=== PATIENT | female | born 1950 | race Caucasian/White ===

== ENCOUNTER → 2016-07-09 | Outpatient (CLI) | payer OTHER ==
--- NOTE | 2016-07-09 08:21 | MA ---
Screening Digital Mammogram Clinical Indications: Routine screening. Technique: Standard cephalocaudal and mediolateral oblique projections were obtained. This examinat ion was processed by the [employer] computer aided detection system. Comparison: June 2015, May 2014, May 2013. Breast density: D; The breast tissue is extremely dense. This may lower the sensitivity of mammograph y. Findings: CAD was reviewed. No suspicious findings are identified. Impression: Negative mammogram. BI-RADS 1. Recommendation: Routine screening is recommended in one year, as long as physical examination is jai ign in this patient with extremely dense breast parenchyma. [facility] will send a result letter to the patient. Negative mammography should not preclude additional workup of a clinically suspicious finding. The patient's information is entered into a reminder system with a target due date for her next mammo gram.
== END ==
LOC: BMCIMAGING 07:33
DX: Z12.31 Encounter for screening mammogram for malignant neoplasm of breast (principal)
CPT/HCPCS: G0202

== ENCOUNTER → 2017-06-02 | Outpatient (CLI) | payer OTHER | LOC: BMCIMAGING 08:45 | PROVIDERS: ATTEND Internal Medicine | DX: R79.89 Other specified abnormal findings of blood chemistry (principal) ==

== ENCOUNTER → 2017-07-17 | Outpatient (CLI) | payer OTHER | LOC: BMCIMAGING 13:05 | PROVIDERS: ATTEND Internal Medicine | DX: Z12.31 Encounter for screening mammogram for malignant neoplasm of breast (principal); M85.80 Other specified disorders of bone density and structure, unspecified site ==

== ENCOUNTER → 2018-07-23 | Outpatient (CLI) | payer OTHER | LOC: BMCIMAGING 12:57 | PROVIDERS: ATTEND Internal Medicine | DX: Z12.31 Encounter for screening mammogram for malignant neoplasm of breast (principal) ==

== ENCOUNTER → 2018-07-27 | Outpatient (CLI) | payer OTHER | LOC: FIMAGING 08:51 | PROVIDERS: ATTEND Internal Medicine | DX: R92.8 Other abnormal and inconclusive findings on diagnostic imaging of breast (principal); N63.12 Unspecified lump in the right breast, upper inner quadrant ==

== ENCOUNTER → 2018-08-11 | Outpatient (CLI) | payer OTHER ==
[~2018-08-11] MED LIST: BUPIVACAINE 0.5% 30 ML SDV ONE; LIDOCAINE 1% 300 MG/30 ML SDV ONE
== END ==
LOC: FIMAGING 07:26
PROVIDERS: ATTEND Internal Medicine
DX: D05.11 Intraductal carcinoma in situ of right breast (principal); C77.3 Secondary and unspecified malignant neoplasm of axilla and upper limb lymph nodes

== ENCOUNTER → 2018-08-16 | Outpatient (CLI) | payer OTHER ==
[~2018-08-16] MED LIST changes: -BUPIVACAINE 0.5% 30 ML SDV ONE; +GADOBUTROL 10 ML VIAL IVP ONE; -LIDOCAINE 1% 300 MG/30 ML SDV ONE
== END ==
LOC: FIMAGING 11:09
PROVIDERS: ATTEND Internal Medicine
DX: D05.11 Intraductal carcinoma in situ of right breast (principal); C77.3 Secondary and unspecified malignant neoplasm of axilla and upper limb lymph nodes
CPT/HCPCS: 82565-PO; A9585; C8908

== ENCOUNTER 2018-08-27 10:54 | Observation (INO) | payer OTHER ==
[2018-08-27] MEDS ORDERED: LR 1,000 ML IV ONE (11:36)
--- NOTE | 2018-08-27 11:40 | PDANEPAE ---
ANE History of Present Illness Right Breast Cancer ANE Past Medical History - Cardiovascular History Hx Hypertension: No Hx Arrhythmias: No Hx Chest Pain: No Hx Coronary Artery / Peripheral Vascular Disease: No Hx CHF / Valvular Disease: No Hx Palpitations: No - Pulmonary History Hx COPD: No Hx Asthma/Reactive Airway Disease: No Hx Recent Upper Respiratory Infection: No Hx Oxygen in Use at Home: No Hx Sleep Apnea: No Sleep Apnea Screening Result - Last Documented: Negative - Neurologic History Hx Cerebrovascular Accident: No Hx Seizures: No Hx Dementia: No - Endocrine History Hx Diabetes: No Endocrine History Comment: JEREMY - Renal History Hx Renal Disorders: No Renal History Comment: FREQUENCY - Liver History Hx Hepatic Disorders: No - Neurological & Psychiatric Hx Hx Neurological and Psychiatric Disorders: Yes Neurological / Psychiatric History Comment: ANXIETY - Cancer History Hx Cancer: Yes Cancer History Comment: Breast Cancer - Congenital Disorder History Hx Congenital Disorders: No - GI History GERD: no Hx Gastrointestinal Disorders: No - Other Health History Other Health History: HAIR FALLING OUT PLACED ON RX - Chronic Pain History Chronic Pain: No - Surgical History Prior Surgeries: COLONOSCOPY ANE Review of Systems Review of systems is: negative Review of Systems: - Exercise capacity Exercise capacity: >=4 METS METS (RN): 4 METS ANE Patient History - Allergies Allergies/Adverse Reactions: No Known Allergies Allergy (Unverified 08/25/18 13:31) - Home Medications Home medications: home medication list seen and reviewed Home Medications: Atorvastatin Calcium DAILY 08/26/18 [Last Taken 08/26/18] Herbals/Supplements -Info Only DAILY 08/26/18 [Last Taken 08/26/18] LORAZEPAM PRN 08/26/18 [Last Taken 08/27/18 0130] Levothyroxine DAILY 08/26/18 [Last Taken 08/27/18 07:30] Spironolactone BID 08/26/18 [Last Taken 08/26/18] - NPO status NPO Status: no food or drink >8 hours NPO Since - Liquids (Date): 08/27/18 NPO Since - Liquids (Time): 07:30 NPO Since - Solids (Date): 08/26/18 NPO Since - Solids (Time): 20:00 - Anes Hx Anes Hx: no prior problems - Smoking Hx Smoking Status: Never smoked - Family Anes Hx Family Hx Anesthesia Complications: NEG ANE Labs/Vital Signs - Vital Signs Blood Pressure: 123/85 Heart Rate: 71 Respiratory Rate: 16 O2 Sat (%): 97 Height: 173.99 cm Weight: 64.183 kg ANE Physical Exam - Airway Neck exam: FROM Mallampati Score: Class 2 Mouth exam: normal dental/mouth exam - Pulmonary Pulmonary: no respiratory distress - Cardiovascular Cardiovascular: regular rate and rhythym, no murmur, rub, or gallop - ASA Status ASA Status: II ANE Anesthesia Plan Anesthesia Plan: GA w LMA Total IV Anesthesia: Yes
[2018-08-27] MEDS ORDERED: ceFAZolin 2 GM/DEXTROSE 100 ML IV ONE (11:41)
[2018-08-27] MEDS ORDERED: MIDAZOLAM 2 MG/2 ML VIAL IVP ONE (11:41)
--- NOTE | 2018-08-27 11:43 | PDHPUP ---
History & Physical Update H&P update statement: This history and physical update is based on an assessment of the patient which was completed after admission or registration (within 24 hours), but prior to the surgery/procedure. H&P update: H&P reviewed & patient examined, no change in patient's condition since H&P completed
[2018-08-27] MEDS ORDERED: MIDAZOLAM 2 MG/2 ML VIAL ONE (11:44)
[2018-08-27] MEDS ORDERED: BUPIVACAINE 0.25% 30 ML SDV ONE (12:35)
[2018-08-27] MEDS ORDERED: LIDOCAINE 1% 300 MG/30 ML SDV ONE (12:36)
[2018-08-27] MEDS ORDERED: EPINEPHrine 1 MG/ML INJ ONE (12:36)
[2018-08-27] MEDS ORDERED: HYDROmorphONE/DILAUDID 2 MG/ML INJ IVP PRN (12:42)
[2018-08-27] MEDS ORDERED: HYDROCODONE/APAP 5/325 TAB PO PRN (12:42)
[2018-08-27] MEDS ORDERED: LR 500 ML IV PRN (12:42)
[2018-08-27] MEDS ORDERED: NALOXONE HCL 0.4 MG/ML INJ IVP PRN (12:42)
[2018-08-27] MEDS ORDERED: PROMETHAZINE HCL 25 MG/ML INJ IVP PRN (12:42)
[2018-08-27] MEDS ORDERED: ONDANSETRON 4 MG/2 ML VIAL IVP PRN ×2 (12:42→13:52)
[2018-08-27] MEDS ORDERED: oxyCODONE IR 5 MG TAB PO PRN (12:42)
[2018-08-27] MEDS ORDERED: HYDROmorphONE/DILAUDID 1 MG/ML INJ IVP PRN (13:52)
[2018-08-27] MEDS ORDERED: ACETAMINOPHEN 325 MG TAB PO PRN (13:52)
--- NOTE | 2018-08-27 13:52 | POSTOPPROG ---
Post Op Note Date of Operation: 08/27/18 Surgeon: Favio Beckford (, FACS) Mechanical Sound Technician: Samara Dupont PAS-III Anesthesiologist: Ayden Mathew MD Anesthesia: LMA Pre-op Diagnosis: right breast CA Procedure: right partial mastectomy with ALND/immediate tissue transfer Findings: RUIQ partial mastectomy Inf/Abcess present in the surg proc area at time of surgery?: No Drains: Cristi Walker (10mm)
--- NOTE | 2018-08-27 13:52 | POSTANESTH ---
Post Anesthetic Evaluation Cardiovascular Status: Similar to Pre-Op Cond Respiratory Status: Similar to Pre-op Cond. Level of Consciousness/Mental Status: Alert and Oriented Pain Control: Adequate, Prn Tx Ordered Nausea/Vomiting Control: Adequate, Prn Tx Ordered Complications Possibly Related to Anesthesia: None Noted
[2018-08-27] MEDS ORDERED: LR 1,000 ML IV SCH (14:00)
[2018-08-27] MEDS ORDERED: fentaNYL 100 MCG/2 ML INJ ONE (14:50)
--- NOTE | 2018-08-27 14:54 | GOP ---
[f rep st] OPERATIVE REPORT DATE OF OPERATION: 08/27/2018 SURGEON: Favio Beckford MD, FACS [employer] SUPERVISOR: BEATA Little 3. ANESTHESIA: General by laryngeal mask. ANESTHESIOLOGIST: Andres Mathew MD PREOPERATIVE DIAGNOSIS: Right breast carcinoma. POSTOPERATIVE DIAGNOSIS: Right breast carcinoma. PROCEDURE PERFORMED: 1. Right partial mastectomy with axillary lymph node dissection. 2. Immediate reconstruction with adjacent tissue transfer. FINDINGS: Partial mastectomy specimen submitted for gross inspection, as well as permanent section, closest margins posteriorly approximately 3 mm observed on gross inspection. Axillary contents revealing 1 enlarged and several smaller , but suspicious, lymph nodes within the level 1 chain. Permanent section pending. ESTIMATED BLOOD LOSS: 25 mL. INDICATIONS: The patient is a 67-year-old female with a clinical stage T2 N1 infiltrating ductal carcinoma in the upper inner quadrant of the right breast, admitted for partial mastectomy and axillary lymph node dissection. DESCRIPTION OF PROCEDURE: After informed consent was obtained, the patient was brought to the operating room and placed under general anesthesia. The right breast and chest wall were prepped and draped in usual fashion. Patient received 2 g of Ancef before proceeding. A time-out and identification of the patient were performed. The partial mastectomy was performed as follows. The patient had a palpable mobile tumor in the upper inner quadrant. A planned incision was made at the areolar border and infiltrated with 0.25% Marcaine and 1% lidocaine. Incision was made with a 15 scalpel, and subsequent dissection was performed with cautery. Skin flaps were elevated over the area of tumor, staying close to the dermis, as this appeared to be close to the skin on preoperative MRI. Dissecting cephalad and medially for a distance of several cm, we mobilized breast tissue well above the palpable tumor, and then directed the dissection posteriorly to the chest wall. The pectoralis muscle was left intact. The fascia and retropectoral fat plane were resected along with the lumpectomy specimen. Dissecting medially and laterally to where the palpable tumor was, and subsequently directly posterior to the areolar border, the specimen was detached, removed from the field, and inked for orientation with a margin- marker kit, separately designating the superior, inferior, medial, lateral, and anterior and posterior margins. Specimen submitted for gross inspection. Immediate reconstruction with adjacent tissue transfer was then performed after hemostasis was secured with cautery. Flaps were elevated in the deep subcutaneous plane cephalad and medially, caudally and laterally from the lumpectomy cavity. This allowed the adjacent breast tissue to cantilever over the defect. The flaps were connected with interrupted 3-0 Monocryl sutures, reducing the defect in the upper inner quadrant. The subcutaneous tissues were approximated with 3-0 Monocryl suture. Skin was left unclosed while we were waiting for a gross inspection. Axillary dissection was then performed as follows. The planned incision site was infiltrated with 0.25% Marcaine and incised along the inferior aspect of the lower axilla, and dissection carried through the skin , subcutaneous tissues and superficial axillary fascia. Dissection was then carried out cephalad to the axillary vein. The axillary contents were swept inferiorly. The highest axillary node appeared mildly suspicious, approximately 1.5 x 2 cm in diameter, and this was removed separately and labeled as highest axillary lymph node. The remaining axillary contents were swept inferiorly, including the largest lymph node, which measured approximately 3 cm in length, and this had been previously biopsied and was known to be malignant. The highest branch of the intercostal brachial nerve was sacrificed in the course of dissection. The long thoracic nerve and thoracodorsal nerve were identified and preserved in the course of dissection. In the lower axilla, the contents were near the tail of the breast and removed from the field. Hemostasis was secured with cautery and hemoclips. The axillary contents, as well as highest axillary node, were submitted for permanent section. Hemostasis was secured within the axillary dissection bed. A 10 mm flat Cristi-Walker drain was brought through a separate stab wound, placed into the posterior aspect of the wound, secured to the skin with 3-0 nylon suture. Subcutaneous tissues were approximated with 3-0 Monocryl suture. Skin was closed with 4-0 Monocryl suture in a subcuticular fashion. The subsequent gross inspection report suggested no need for additional margins, and we closed the skin with 4-0 Monocryl suture in a subcuticular fashion as well. Topical Dermabond was applied. Sterile dressings were placed over the wound exit site. The patient was returned extubated to the recovery room in satisfactory condition. Needle, sponge, and instrument count were correct. COMPLICATIONS: None. /[id number]/MODL MTDD
[2018-08-27] MEDS: fentaNYL 100 MCG/2 ML INJ IVP PRN ×2 (14:57→15:17)
[2018-08-27] MEDS: ceFAZolin 2 GM/DEXTROSE 100 ML IV SCH (21:35)
[2018-08-27] MEDS: HYDROCODONE/APAP 5/325 TAB PO PRN (22:44)
[2018-08-28] MEDS: ceFAZolin 2 GM/DEXTROSE 100 ML IV SCH (03:41)
[2018-08-28] MEDS: HYDROCODONE/APAP 5/325 TAB PO PRN ×2 (06:27→10:36)
[2018-08-28 07:13] VITALS: BP 100/63
[2018-08-28] MEDS ORDERED: IBUPROFEN 600 MG TAB PO ONE (08:35)
[2018-08-28] MEDS ORDERED: ENOXAPARIN 40 MG/0.4 ML SYR SC SCH (09:00)
[2018-08-28] MEDS ORDERED: PNEUMOC 13-VAL CONJ-DIP CRM/PF 0.5 ML SYR (PREVNAR 13) IM ONE (09:07)
--- NOTE | 2018-08-28 09:10 | PDDCSUM ---
Discharge Summary Discharge Summary: #[id number] Dictated Jose Beckford MD, FACS
--- NOTE | 2018-08-28 09:11 | GDS ---
[f rep st] DISCHARGE SUMMARY DISCHARGE DIAGNOSIS: Right breast carcinoma. PROCEDURE PERFORMED: 08/27, right partial mastectomy with axillary lymph node dissection. HOSPITAL COURSE: For details of admission history and physical, please see dictated summary. Briefl y, the patient is a 67-year-old female with a clinical stage T2 N1 right breast carcinoma, admitted f or partial mastectomy and axillary lymph node dissection. This was performed in conjunction with imm ediate reconstruction using adjacent tissue transfer. Surgery was performed on the day of admission. She was admitted for observation and discharged home the morning after surgery, tolerating a soft d iet. Her pain was controlled with hydrocodone and ibuprofen. Her operative sites appeared uncomplic ated. She was instructed in drain care and activity, and will follow up in my office in the upcoming week for drain check and possible removal. I will contact her with final pathology results when stanislav ilable. DISCHARGE MEDICATIONS: The patient will resume spironolactone 100 mg p.o. twice daily, lorazepam 0.5 mg q.6 hours p.r.n., levothyroxine 100 mcg p.o. daily. In addition, was given a prescription for hy drocodone 1 p.o. q.4 hours p.r.n. #20, and ibuprofen 600 mg p.o. three times daily #30, Senokot S 1 p .o. twice daily #30. /[id number]/MODL
== END 2018-08-28 10:43 | disposition home or self-care (01) ==
LOC: FSGY 10:54 → F3N 13:52 → F1N 16:03
PROVIDERS: ADMIT Surgery; ATTEND Surgery
DX: C50.911 Malignant neoplasm of unspecified site of right female breast (principal); C77.3 Secondary and unspecified malignant neoplasm of axilla and upper limb lymph nodes; E03.9 Hypothyroidism, unspecified; E78.5 Hyperlipidemia, unspecified; Z23 Encounter for immunization
CPT/HCPCS: 19302; 19366; 90670; 97161; 97165; 97535; G0009; G0378; J0171; J0690; J1650; J2250; J3010

== ENCOUNTER → 2018-08-27 | Outpatient (CLI) | payer OTHER | LOC: FIMAGING 10:55 ==

== ENCOUNTER 2018-09-17 13:17 | Day surgery (SDC) | payer OTHER ==
[2018-09-17] MEDS ORDERED: LR 1,000 ML IV ONE (13:36)
[2018-09-17] MEDS ORDERED: LORazepam 2 MG/ML INJ IVP ONE (13:36)
[2018-09-17] MEDS ORDERED: ceFAZolin 2 GM/DEXTROSE 100 ML IV ONE (13:36)
[2018-09-17] MEDS ORDERED: HEPARIN 1000 UNIT/1 ML MDV ONE ×2 (14:04→14:54)
[2018-09-17] MEDS ORDERED: LIDOCAINE 1% 300 MG/30 ML SDV ONE (14:04)
[2018-09-17] MEDS ORDERED: BUPIVACAINE/EPI 0.25% 10 ML SDV ONE (14:04)
[2018-09-17] MEDS ORDERED: MIDAZOLAM 2 MG/2 ML VIAL IVP ONE (14:23)
--- NOTE | 2018-09-17 14:31 | PDANEPAE ---
ANE History of Present Illness breast cancer for port placement ANE Past Medical History - Cardiovascular History Hx Hypertension: No Hx Arrhythmias: No Hx Chest Pain: No Hx Coronary Artery / Peripheral Vascular Disease: No Hx CHF / Valvular Disease: No Hx Palpitations: No - Pulmonary History Hx COPD: No Hx Asthma/Reactive Airway Disease: No Hx Recent Upper Respiratory Infection: No Hx Oxygen in Use at Home: No Hx Sleep Apnea: No Sleep Apnea Screening Result - Last Documented: Negative - Neurologic History Hx Cerebrovascular Accident: No Hx Seizures: No Hx Dementia: No - Endocrine History Hx Diabetes: No Endocrine History Comment: JEREMY - Renal History Hx Renal Disorders: Yes Renal History Comment: FREQUENCY - Liver History Hx Hepatic Disorders: No - Neurological & Psychiatric Hx Hx Neurological and Psychiatric Disorders: Yes Neurological / Psychiatric History Comment: ANXIETY - Cancer History Hx Cancer: No Cancer History Comment: Breast Cancer - Congenital Disorder History Hx Congenital Disorders: No - GI History Hx Gastrointestinal Disorders: No - Other Health History Other Health History: HAIR FALLING OUT PLACED ON RX. wears glasses. drain has been out for over a week but fluid is increasing- dr jay is aware - Chronic Pain History Chronic Pain: No - Surgical History Prior Surgeries: 08/27/18 right breast lumpectomy with Shakeel. COLONOSCOPY ANE Review of Systems Review of systems is: negative Review of Systems: - Exercise capacity METS (RN): 4 METS ANE Patient History - Allergies Allergies/Adverse Reactions: No Known Allergies Allergy (Verified 09/16/18 14:23) - Home Medications Home medications: home medication list seen and reviewed Home Medications: Atorvastatin Calcium [Lipitor 10 mg (*)] EVERY OTHER DAY 08/26/18 [Last Taken ] Herbals/Supplements -Info Only 08/26/18 [Last Taken 09/16/18] LORazepam [Ativan (*)] Q6H PRN 08/26/18 [Last Taken 09/16/18] Levothyroxine [Synthroid 100 mcg (*)] 08/26/18 [Last Taken 09/17/18] Spironolactone 08/26/18 [Last Taken 09/16/18] Acetaminophen [Tylenol 325mg (*)] Q4HRS PRN 09/16/18 [Last Taken Unknown] Hydrocodone/APAP 5/325 [Holliday 5/325 (*)] Q4HRS PRN 09/16/18 [Last Taken 09/16/18 ] Ibuprofen 09/16/18 [Last Taken 09/16/18] Sennosides/Docusate Sodium [Senokot-S (OTC)] 09/16/18 [Last Taken 09/16/18] - NPO status NPO Since - Liquids (Date): 09/17/18 NPO Since - Liquids (Time): 11:20 NPO Since - Solids (Date): 09/17/18 NPO Since - Solids (Time): 07:30 - Anes Hx Anes Hx: no prior problems - Smoking Hx Smoking Status: Never smoked - Alcohol Use Alcohol Use: None - Family Anes Hx Family Hx Anesthesia Complications: none ANE Labs/Vital Signs - Vital Signs Blood Pressure: 114/70 Heart Rate: 66 Respiratory Rate: 16 O2 Sat (%): 97 Height: 172.72 cm Weight: 65.317 kg ANE Physical Exam - Airway Neck exam: FROM Mallampati Score: Class 1 Mouth exam: normal dental/mouth exam - Pulmonary Pulmonary: no respiratory distress - Cardiovascular Cardiovascular: regular rate and rhythym - ASA Status ASA Status: II ANE Anesthesia Plan Anesthesia Plan: GA with mask
[2018-09-17] MEDS ORDERED: PROPOFOL/EMULSION 500 MG/50 ML BOTTLE IV ONE (14:45)
[2018-09-17] MEDS ORDERED: LIDOCAINE 2% 5 ML SDV ONE (14:49)
[2018-09-17] MEDS ORDERED: fentaNYL 100 MCG/2 ML INJ ONE (14:49)
--- NOTE | 2018-09-17 15:00 | POSTANESTH ---
Post Anesthetic Evaluation Cardiovascular Status: Normal, Stable Respiratory Status: Normal, Stable Level of Consciousness/Mental Status: Can Participate in Eval, Alert and Oriented Pain Control: Adequate, Prn Tx Ordered Nausea/Vomiting Control: Adequate, Prn Tx Ordered Complications Possibly Related to Anesthesia: None Noted
--- NOTE | 2018-09-17 15:05 | PDHPUP ---
History & Physical Update H&P update statement: This history and physical update is based on an assessment of the patient which was completed after admission or registration (within 24 hours), but prior to the surgery/procedure. H&P update: H&P reviewed & patient examined (right axillary seroma has developed since I last saw Nikky. I recommended aspiration in the OR and added it to her consent form.), changes noted
[2018-09-17] MEDS ORDERED: ACETAMINOPHEN 500 MG TAB PO PRN (15:40)
[2018-09-17] MEDS ORDERED: oxyCODONE IR 5 MG TAB PO PRN (15:40)
[2018-09-17] MEDS ORDERED: LR 500 ML IV PRN (15:40)
[2018-09-17] MEDS ORDERED: ONDANSETRON 4 MG/2 ML VIAL IVP PRN (15:40)
[2018-09-17] MEDS ORDERED: HYDROmorphONE/DILAUDID 2 MG/ML INJ IVP PRN (15:40)
[2018-09-17] MEDS ORDERED: fentaNYL 100 MCG/2 ML INJ IVP PRN (15:40)
[2018-09-17] MEDS ORDERED: HYDROCODONE/APAP 5/325 TAB PO PRN ×2 (15:40→16:08)
[2018-09-17] MEDS ORDERED: NALOXONE HCL 0.4 MG/ML INJ IVP PRN (15:40)
[2018-09-17] MEDS ORDERED: ONDANSETRON DISINTEGRATING 4 MG TAB PO PRN (16:08)
--- NOTE | 2018-09-17 16:08 | POSTOPPROG ---
Post Op Note Date of Operation: 09/17/18 Surgeon: Favio Beckford (, FACS) Anesthesiologist: Barry Dozier MD Anesthesia: Other (Specify) (MAC) Pre-op Diagnosis: right breast CA/need for venous access/right axillary seroma Post-op Diagnosis: same Procedure: left subclavian venous port/aspiration right axillary seroma Findings: uncomplicated port placement/110ml seroma right axilla Inf/Abcess present in the surg proc area at time of surgery?: No EBL: Minimal (5 ml) Complications: none Bowel Protocol: N/A Clean Closure Performed: N/A
--- NOTE | 2018-09-17 17:16 | GOP ---
[f rep st] OPERATIVE REPORT DATE OF OPERATION: 09/17/2018 SURGEON: Favio Beckford MD ANESTHESIA: Intravenous, general. ANESTHESIOLOGIST: Barry Dozier MD. PREOPERATIVE DIAGNOSIS: 1. Right breast carcinoma, status post partial mastectomy and axillary lymph node dissection. 2. Need for venous access for chemotherapy administration. 3. Right axillary seroma, post drain removal. POSTOPERATIVE DIAGNOSIS: 1. Right breast carcinoma, status post partial mastectomy and axillary lymph node dissection. 2. Need for venous access for chemotherapy administration. 3. Right axillary seroma, post drain removal. PROCEDURE PERFORMED: 1. Placement of left subclavian venous port. 2. Aspiration of right axillary seroma. FINDINGS: Uncomplicated port placement. Postprocedural chest x-ray showing the tip of the catheter at the superior vena cava, right atrial junction. Possible new right apical pulmonary nodule per Rad iology; recommending CT of the chest. ESTIMATED BLOOD LOSS: Estimated blood loss for this procedure, less than 10 mL. DESCRIPTION OF PROCEDURE: After informed consent was obtained, the patient was brought to the operat ing room and placed under general anesthesia. The left arm was tucked. A gel pad was placed between the scapulae. The neck, chest wall and both shoulders and the right axilla were prepped and draped in the usual fashion. Before proceeding, a time-out and identification of the patient was performed. The table was positioned in Trendelenburg. Using 1% lidocaine plain and an 18-gauge thin-wall needle , the left subclavian vein was punctured on the first pass and a flexible J-wire was introduced and a dvanced without resistance. The needle was withdrawn. The wire was confirmed by fluoroscopy. A edith nned reservoir site was chosen slightly medial and inferior to the venipuncture site. This area was infiltrated with 1% lidocaine and 0.25% Marcaine. A transverse incision was made and dissection byrd ied out through the skin and subcutaneous tissues, creating a subcutaneous pocket for the port reserv oir. An 8-[place] polyurethane catheter was then tunneled from the reservoir site to the venipuncture site where a small pravin had been made in the skin. A dilator and peel-away catheter were passed ove r the wire. The wire and dilator were removed and the port catheter was passed through the peel-away catheter, which was then split and removed, leaving the 8-[place] polyurethane catheter intravenous. This was advanced without resistance and the external portion was aspirated with good venous return and flushed with dilute heparin solution. The tip of the catheter was then adjusted by withdrawal un jeronimo fluoroscopy, such that the tip was at the superior vena caval right atrial junction. The externa l portion of the catheter was cut to length and attached to a reservoir with a locking hub. This was accessed with a noncoring needle and aspirated with good venous return and flushed with dilute hepar in solution followed by 2.5 mL of 1000 unit/mL heparin. The reservoir was then secured to the fascia with 3-0 Prolene sutures. The subcutaneous tissues were closed with 3-0 Vicryl suture. Skin was cl osed with 4-0 Monocryl suture in a subcuticular fashion. Topical Dermabond was applied. The right a xillary seroma was aspirated with an 18-gauge needle withdrawing 110 mL of seroma fluid. This was di scarded. A Band-Aid was applied to the exit site. The patient was returned to the recovery room whe re a postprocedural chest x-ray was performed, which showed no pneumothorax and good port placement. Dr. Sood thought there could be a possible right apical pulmonary nodule and recommended a CT scan. COMPLICATIONS: None. /[id number]/MODL
[2018-09-17 17:57] VITALS: BP 135/80
== END 2018-09-17 17:50 | disposition home or self-care (01) ==
LOC: FSGY 13:17
PROVIDERS: ATTEND Surgery
DX: C50.911 Malignant neoplasm of unspecified site of right female breast (principal); C77.3 Secondary and unspecified malignant neoplasm of axilla and upper limb lymph nodes; Z17.0 Estrogen receptor positive status [ER+]; E03.9 Hypothyroidism, unspecified; E78.5 Hyperlipidemia, unspecified
CPT/HCPCS: C1788; J0690; J1642; J2250; J2704; J3010

== ENCOUNTER → 2018-09-29 | Outpatient (CLI) | payer OTHER | LOC: FIMAGING 09:26 | PROVIDERS: ATTEND Surgery | DX: R91.1 Solitary pulmonary nodule (principal); Z98.890 Other specified postprocedural states; Z85.3 Personal history of malignant neoplasm of breast ==